=== PATIENT | male | born 1980 | race Two or more races ===

== ENCOUNTER 2020-06-19 10:26 | Emergency (ER) | payer SELFPAY ==
[~2020-06-19] VITALS: Ht 167.6 cm; Wt 72.6 kg
[2020-06-19 10:48] VITALS: BP 123/89
[2020-06-19] MEDS ORDERED: cefTRIAXone SODIUM 250 MG VL IM ONE (11:15)
[2020-06-19] MEDS ORDERED: AZITHROMYCIN 250 MG TAB PO ONE (11:15)
[2020-06-19] MEDS ORDERED: LIDOCAINE 1% HCL (LOCAL ANESTH.) INJ 20ML MDV ONE (11:26)
== END 2020-06-19 11:39 | disposition home or self-care (01) ==
LOC: ER 10:26
DX: Z20.2 Contact with and (suspected) exposure to infections with a predominantly sexual mode of transmission (principal)
CPT/HCPCS: 96372; 99283; J0696; J2001

== ENCOUNTER 2020-09-03 15:01 | Emergency (ER) | payer SELFPAY ==
[~2020-09-03] VITALS: Ht 167.6 cm; Wt 77.1 kg
[2020-09-03 18:17] VITALS: BP 135/80
== END 2020-09-03 18:21 | disposition home or self-care (01) ==
LOC: ER 15:01
DX: R10.9 Unspecified abdominal pain (principal); R11.10 Vomiting, unspecified; F17.210 Nicotine dependence, cigarettes, uncomplicated
CPT/HCPCS: 74176